=== PATIENT | female | born 1990 | race Caucasian/White ===

== ENCOUNTER 2025-02-02 08:26 | Emergency (ER) | payer OTHER ==
[~2025-02-02] VITALS: Ht 185.4 cm; Wt 104.0 kg
[2025-02-02 08:34] VITALS: BP 135/73; PULSE 99; RESP 18; TEMP 36.7; O2SAT 98
[2025-02-02] MEDS: LIDOCAINE HCL 1% 20ML VIAL INFIL ONE (09:25)
== END 2025-02-02 10:30 | disposition home or self-care (01) ==
LOC: ER 08:45
DX: S61.303A Unspecified open wound of left middle finger with damage to nail, initial encounter (principal); X58.XXXA Exposure to other specified factors, initial encounter; Y93.89 Activity, other specified; Y92.89 Other specified places as the place of occurrence of the external cause; Y99.8 Other external cause status
CPT/HCPCS: 11730; 99284; J2003; Z7610